=== PATIENT | female | born 1985 | race Hispanic/Latino ===

== ENCOUNTER 2025-09-23 18:07 | Emergency (ER) | payer SELFPAY ==
[~2025-09-23] VITALS: Ht 167.6 cm; Wt 81.6 kg
--- NOTE | 2025-09-23 19:19 | ERN ---
ED Note History of Present Illness Stated Complaint: RT ANKLE PAIN Chief Complaint: Ankle Problem Time Seen by MD: 19:08 Time Seen by Midlevel: 19:12 Dictation: Placed in the system at this time 1908. Patient with a standing on the bed when she jumped off her right ankle twisted. Complaining of right ankle pain and swelling. Allergies: Coded Allergies: No Known Allergies (Unverified Allergy, Unknown, 09/23/25) Past Medical History Past Medical History: No Pertinent History Surgical History: BTL Review of System Dictation Constitutional: Negative for fever,chills, and weight loss Eyes: Negative for injury, pain,redness, and discharge ENT: Negative for injury,pain or swelling Cardiovascular: Negative for chest pain, palpitations, and edema Respiratory: Negative for shortness of breath, cough, and wheezing, Abdomen/GI: Negative for abdominal pain, nausea, vomiting, diarrhea, and constipation Back: Negative for injury and pain : Negative for injury, bleeding and discharge MS/Extremity: Negative for injury and deformity, right ankle pain Skin: Negative for rash, and discoloration Neuro: Negative for headache, weakness, numbness, tingling, and seizure Psych: Negative for suicide ideation, homicidal ideation, and hallucinations Review of Systems: was completed Initial Vital Sign VS Vital Signs Date Time Temp Pulse Resp B/P (MAP) Pulse Ox O2 Delivery O2 Flow Rate FiO2 09/23/25 19:01 97.7 89 20 147/83 97 Room Air Physical Exam Dictation General: awake, alert, NAD Head/Face: Normocephalic, atraumatic Eyes: PERRL, EOMI, vision at baseline ENT: oral cavity clear, TMs clear, no signs of infection Neck: Trachea midline, supple, no nuchal rigidity Cardiovascular: RRR, normal S1/S2, No MRGs, no JVD Respiratory: CTAB, no respiratory distress, No rales or wheezes Abdomen: Soft, non-tender, non-distended, normal bowel sounds, no guarding or rebound. Skin: Warm, dry, normal turgor, no rash MS/Extremity: Pulses equal, no cyanosis, neurovascular intact, FROM, bleeding noted in the right ankle Neuro: COAx4, GCS 15, strength 5/5, CN 2-12 intact, normal cerebellar exam, normal gait, Psych: Normal behavior, mood, and affect normal Results (Laboratory/Radiology) Labs Reviewed?: Yes X-RAY Comment: [facility] [address] [place], [place] [id number] IMAGING REPORT Signed PATIENT: IZZY LYMAN MR#: [id number] : 1985 SEX: F AGE: 40 LOCATION: [facility] ORDER 05 STATUS: REG ER REPORT#: [id number] SERVICE 04 REASON: pain, twisted ORDERING PHYSICIAN: KIMMY COOK PAC PROCEDURE: [id number] - ANKLE 2VWS RT EXAM: CR right ankle, 3 View. CLINICAL HISTORY: pain, twisted COMPARISON: None provided. FINDINGS: BONES: No acute fracture or aggressive appearing osseous lesion. JOINTS: The joint spaces appear within normal limits. No dislocation. No radiographic evidence of a joint effusion. SOFT TISSUES: Lateral ankle soft tissue edema. IMPRESSION: 1. Lateral ankle soft tissue edema. 2. No acute osseous injury. /[place] DICTATED BY: ILIANA MCKEON Jr., MD DATE: 09/23/252134 ELECTRONICALLY SIGNED BY: ILIANA MCKEON Jr., MD DATE: 09/23/252134 ED Course ED Course Orders Procedure Category Date Status Time Ankle 2vws Rt RAD 09/23/25 Resulted 19:05 Hydrocodone/Apap PHA 09/23/25 In Process 5/325 ([place] 5/325mg) 20:30 Current Medications Medications (Trade) Dose Ordered Sig/Nicolás Route PRN Reason Start Time Stop Time Status Last Admin Dose Admin Acetaminophen/ Hydrocodone Bitart (NORco 5/325MG) 1 tab ONCE PO 09/23/25 20:30 09/23/25 23:30 09/23/25 20:30 Vital Signs Date Time Temp Pulse Resp B/P (MAP) Pulse Ox O2 Delivery O2 Flow Rate FiO2 09/23/25 19:01 97.7 89 20 147/83 97 Room Air Medical Decision Making MDM MDM: Placed in the system at this time 1907. Patient with a standing on the bed when she jumped off her right ankle twisted. Complaining of right ankle pain and swelling. X-ray shows no acute finding. Patient will be placed in Danny bandage and crutches to follow up outpatient. Differential diagnosis: Ankle fracture, ankle sprain. Rationale: Tests considered and ordered secondary to shared decision making include: Previous outside records reviewed: Old ER visits. Risk of complication and/or morbidity or mortality of patient management: None Medications-Per medication reconciliation Need for hospitalization: Patient does not meet criteria for hospitalization. Need for emergency major/minor surgery: No There are no social concerns with this patient. Prescription drug management Prescriptions will include symptomatic care Patient's prior external medical records from other ER visits were reviewed by me as indicated. Prior testing and results from previous visits were reviewed. Prior tests were taken into account with medical decision making and resource utilization, independent historian/historians were used to obtain complete medical history. I independently interpreted the test that were performed, results were reviewed by me and considered findings on radiology if ordered. Medical management and examination interpretation discussions were had by me with other qualified healthcare professionals as indicated for the patient's care. DX & DISP Disposition: Discharge Departure Impression: Primary Impression: Ankle sprain Condition: Stable Additional Instructions: X-rays do not show any broken bones. Keep your ankle elevated when possible. Take Tylenol or Motrin for pain control. Follow up with your primary doctor in two days. Referrals: NONE (PCP) Time of Disposition: 20:46 I have reviewed the case, and I agree with, Diagnosis and Plan GILBERT HU CREDENTIALING SPECIALIST Sep 23, 2025 19:19
[2025-09-23] MEDS: HYDROcodone/APAP 5/325 1 TAB TABLET PO SCH (20:30)
--- NOTE | 2025-09-23 20:30 | NUR ---
MEDICATION USAGE AND RATIONALE EXPLAINED TO PT AND FAMILY, PT VERBALIZED UNDERSTANDING WITH VERBAL TEACHBACK PT ALLERGIES , NAME AND CONFIRMED PRIOR TO MEDICATION ADMINISTRATION
--- NOTE | 2025-09-23 20:31 | NUR ---
ICE PACK WITH BARRIER PROVIDED
--- NOTE | 2025-09-23 20:36 | HMCIMG ---
EXAM: CR right ankle, 3 View. CLINICAL HISTORY: pain, twisted COMPARISON: None provided. FINDINGS: BONES: No acute fracture or aggressive appearing osseous lesion. JOINTS: The joint spaces appear within normal limits. No dislocation. No radiographic evidence of a joint effusion. SOFT TISSUES: Lateral ankle soft tissue edema. IMPRESSION: 1. Lateral ankle soft tissue edema. 2. No acute osseous injury. /[place]
[2025-09-23 21:37] VITALS: BP 132/63; PULSE 88; RESP 20; TEMP 97.8; O2SAT 100
--- NOTE | 2025-09-23 21:37 | NUR ---
RT ANKLE MATEO BANDAGE APPLED. CAP REFILL LESS THAN 2 SECONDS EDUCATED ON ICE THERAPY, ELEVATING ANKLE AND MOTRIN/TYLENOL USAGE PT VERBALIZED UNDERSTANDING WITH VERBAL TEACHBACK PT EDUCATED ON CRUTCH USAGE, RETURNED DEMONSTRATION
== END 2025-09-23 21:39 | disposition home or self-care (01) ==
LOC: EDH 18:07
DX: S93.401A Sprain of unspecified ligament of right ankle, initial encounter (principal); Z98.51 Tubal ligation status; X50.1XXA Overexertion from prolonged static or awkward postures, initial encounter; Y93.89 Activity, other specified; Y92.89 Other specified places as the place of occurrence of the external cause; Y99.8 Other external cause status
CPT/HCPCS: 73600; 99283